=== PATIENT | female | born 1935 | race Caucasian/White ===

== ENCOUNTER → 2017-06-18 | Outpatient (CLI) | payer OTHER, MEDICAID | LOC: FIMAGING 13:16 | PROVIDERS: ATTEND Urology | DX: N30.11 Interstitial cystitis (chronic) with hematuria (principal); R39.198 Other difficulties with micturition ==

== ENCOUNTER 2017-09-20 19:11 | Emergency (ER) | payer OTHER, MEDICAID ==
[2017-09-20] MEDS ORDERED: IBUPROFEN 600 MG TAB PO ONE (19:54)
[2017-09-20] MEDS ORDERED: PHENAZOPYRIDINE HCL 200 MG TAB PO ONE (19:55)
--- NOTE | 2017-09-20 19:58 | EDPHY ---
H & P Time Seen by Provider: 09/20/17 19:39 HPI/ROS: CHIEF COMPLAINT: Dysuria HISTORY OF PRESENT ILLNESS: 82-year-old female with interstitial cystitis presents with dysuria and suprapubic pain. She has a long history of interstitial cystitis, but recently the pain and urinary symptoms have increased. She has dysuria and urinary frequency. No recent pain medicine and not on antibiotics. She has seen multiple urologists in the past, but does not currently have a urologist in [place]. REVIEW OF SYSTEMS: Constitutional: No fever, no chills Eyes: No drainage ENT: No sore throat Respiratory: No cough, no shortness of breath Cardiac: No chest pain Gastrointestinal: no vomiting Genitourinary: No hematuria Musculoskeletal: No leg pain or swelling Skin: No rash Neurological: No headache Psychiatric: No depression Past Medical/Surgical History: Interstitial cystitis Smoking Status: Never smoked Physical Exam: General Appearance: Alert, pleasant Eyes: Pupils equal and round, no conjunctival pallor ENT, Mouth: Mucous membranes moist Neck: Normal inspection Respiratory: Lungs are clear to auscultation Cardiovascular: Regular rate and rhythm Gastrointestinal: Abdomen is soft, suprapubic tenderness Neurological: A&O, nonfocal, normal gait Skin: Warm and dry, no rash Extremities: Normal inspection Psychiatric: Mood and affect normal Constitutional: Initial Vital Signs Temperature (C) 36.8 C 09/20/17 19:21 Heart Rate 93 09/20/17 19:21 Respiratory Rate 18 09/20/17 19:21 Blood Pressure 191/132 H 09/20/17 19:21 O2 Sat (%) 96 09/20/17 19:21 O2 Delivery Mode Room Air Allergies/Adverse Reactions: No Known Allergies Allergy (Verified 09/20/17 19:19) Home Medications: Medication Instructions Recorded LISINOPRIL 01/19/11 Levothyroxine Sodium [Synthroid] 0 mcg PO 01/19/11 Atorvastatin Calcium 09/20/17 Ibuprofen 600 mg PO TID PRN #30 tablet 09/20/17 Phenazopyridine HCl [Pyridium] 200 mg PO TID #10 tab 09/20/17 traZODone 09/20/17 Medical Decision Making ED Course/Re-evaluation: This pt presents with worsening sx of interstitial cystitis. RBC's present on UA, without evidence of infection. Pyridium and Ibuprofen given. f/u urology. Doubt alternative etiology for sx. Differential Diagnosis: includes though not limited to UTI, kidney stone, appy - Data Points Medications Given: Discontinued Medications Ibuprofen (Motrin) 600 mg PO EDNOW ONE Stop: 09/20/17 19:55 Last Admin: 09/20/17 20:18 Dose: 600 mg Phenazopyridine HCl (Pyridium) 200 mg PO EDNOW ONE Stop: 09/20/17 19:56 Last Admin: 09/20/17 20:14 Dose: 200 mg Departure - Departure Disposition: Home, Routine, Self-Care Clinical Impression: Interstitial cystitis Condition: Good Instructions: Interstitial Cystitis (ED) Additional Instructions: Ibuprofen 600 mg 3 times daily while the pain persists. Referrals: Max Adams MD [Medical Doctor] - As per Instructions (Call to make an appointment.) Prescriptions: Ibuprofen 600 mg PO TID PRN #30 tablet PRN Reason: pain Phenazopyridine HCl [Pyridium] 200 mg PO TID #10 tab
[2017-09-20 21:08] VITALS: BP 132/77
== END 2017-09-20 20:50 | disposition home or self-care (01) ==
DX: N30.10 Interstitial cystitis (chronic) without hematuria (principal)